=== PATIENT | female | born 1935 | race Two or more races ===

== ENCOUNTER 2017-02-25 05:55 | Day surgery (SDC) | payer OTHER ==
[2017-02-24 11:59] VITALS: BMI 26.1
[~2017-02-25] VITALS: Ht 167.6 cm; Wt 73.7 kg
[2017-02-25] VITALS (16 sets, daily range): BP systolic 117–148; BP diastolic 58–75; PULSE 60–70; RESP 14–23; Ht 167.6 cm; Wt 73.7 kg
[~2017-02-25 05:55] MED LIST: ALEN70TA30 PO; METH10TA5 PO; OMEG1CAP30 PO; PANT40TA4 PO; UBID100C24 PO; [UNRECOGNIZED DRUG - CODE] PO
[2017-02-25] MEDS ORDERED: CEFAZOLIN 2 GM/50 ML (PMX) 50 ML IVPB SCH (06:00)
[2017-02-25] MEDS ORDERED: BUPIVACAINE 0.25% (MPF) 30 ML INJ ONE (07:02)
[2017-02-25] MEDS ORDERED: POLYMYXIN/BACITRACIN 1L IRRIG ONE (07:02)
[2017-02-25] MEDS ORDERED: FENTAnyl 50 MCG/ML VIAL ONE (07:22)
[2017-02-25] MEDS ORDERED: PROPOFOL 20 ML ONE (07:22)
[2017-02-25] MEDS ORDERED: METH10TA5 PO (07:47)
[2017-02-25] MEDS ORDERED: DONE5TAB7 PO (07:47)
[2017-02-25] MEDS ORDERED: PARO-37 PO (07:47)
--- NOTE | 2017-02-25 07:57 | HPN ---
Date/Time of Note Date/Time of Note DATE: 02/25/17 TIME: 07:57 Interval H&P Admission Note Pt. seen H&P reviewed: No system changes BAMBI DU DPM Feb 25, 2017 07:57
[2017-02-25] MEDS ORDERED: CEFAZOLIN 1 GM INJ ONE (08:06)
[2017-02-25] MEDS ORDERED: METOCLOPRAMIDE 10 MG INJ ONE (08:07)
[2017-02-25] MEDS ORDERED: ONDANSETRON 4 MG INJ ONE (08:07)
[2017-02-25] MEDS ORDERED: DEXAMETHASONE 4 MG/ML 1 ML INJ ONE (08:07)
[2017-02-25] MEDS ORDERED: ACETAMINOPHEN 1000MG/100ML IV 100 ML ONE (08:07)
[2017-02-25] MEDS ORDERED: PHENYLephrine (100 MCG/ML) 5ML SYG ONE ×2 (08:10→08:34)
--- NOTE | 2017-02-25 09:56 | OPR ---
Date/Time of Note Date/Time of Note DATE: 02/25/17 TIME: 09:56 Operative Report Procedure Date: Feb 25, 2017 Preoperative Diagnosis Severe hammertoe left second toe Severe hammertoe left third toe Severe hammertoe left fourth toe Severe hammertoe left fifth toe Subluxation left second metatarsophalangeal joint Subluxation left third metatarsophalangeal joint Left foot pain Postoperative Diagnosis Severe hammertoe left second toe Severe hammertoe left third toe Severe hammertoe left fourth toe Severe hammertoe left fifth toe Subluxation left second metatarsophalangeal joint Subluxation left third metatarsophalangeal joint Left foot pain Operation Performed Surgical correction of left second hammertoe deformity Surgical correction of left third hammertoe deformity Surgical correction of left fourth hammertoe deformity Surgical correction left fifth hammertoe deformity Second metatarsal osteotomy left foot Third metatarsal osteotomy left foot Second metatarsophalangeal joint release left foot Third metatarsophalangeal joint release left foot Fourth metatarsal phalangeal joint release left Surgeon: TODD DU M.D. Anesthesia: MAC Estimated Blood Loss: minimal Specimens Bone from left foot toes 2 through 5 Complications: None Pt Condition Post Procedure: stable Disposition: PACU Indications This is a pleasant 81-year-old female patient who has been suffering with severe left foot hammertoe deformities and subluxation of the second and third metatarsophalangeal joints for the past several years, worsened for the past 2 years. Patient reports pain with shoes and with activities. Patient was evaluated and was found to have severe subluxation of second and third metatarsophalangeal joints with severe rigid hammertoes 2 through 5 of the left foot. Patient has failed the following treatments: Activity modification, shoewear modification, NSAIDs, orthotics, injections. Patient seeks surgical management. Recommended procedure: Surgical correction of left second through fifth rigid hammertoes with second and third metatarsal osteotomies and metatarsophalangeal joint release of second, third and fourth metatarsal phalangeal joints of the left foot. Risks and complications of this type of surgery was discussed with patient in great detail. Risks and complications discussed included, but are not limited to, postoperative infection, postoperative pain, hardware failure, malunion, nonunion, delayed union, failure of surgery to correct the problem, need for additional surgical procedures, deep venous thrombosis, limb loss and loss of life. Patient understands the discussion and agrees to the procedure. An informed consent was signed, obtained and placed in the chart. No guarantees or warrantees was given or implied as to the outcome of the procedure either in verbal or written form. Operative\Procedure Findings Severe rigid hammertoe second through fifth left foot with subluxation of second and third metatarsophalangeal joints Procedure Description Procedure in detail: The patient was brought into the operating room and was placed on the operating table in the supine position. General anesthesia was administered to the patient by the anesthesiologist. A pneumatic ankle tourniquet was applied to the left ankle. All bony prominences were padded probably. A timeout was called by the circulating nurse. The correct site of surgery was identified. All instrumentation was checked. All necessary preoperative medications have been administered. The left foot was scrubbed, prepped and draped in the usual aseptic manner. An Esmarch bandage was utilized to exsanguinate the foot and the pneumatic ankle tourniquet was inflated to 250 mmHg pressure. Procedure #1: Attention was directed to the second toe: A 2 cm linear incision was made over the second toe using a #15 blade extending from the distal interphalangeal joint all the way past the metatarsophalangeal joint. Dissection was deepened through the subcutaneous layer with care being taken to identify and protect vital neurovascular structures. Bleeders were cauterized as necessary. The metatarsophalangeal joint was identified and the extensor tendon was transected distally and proximally and a longitudinal incision was made and the tendon was lengthened. Next, the second metatarsal phalangeal joint was incised using a #15 blade. A McGlamry elevator was inserted and the adhesions were released. Next, a power saw was used to cut the neck of the second metatarsal bone at a 45 angle. The head of the second metatarsal bone was then translated proximally. Next, a 2.0 snap off screw was inserted for permanent fixation. The excess sharp edge of bone dorsally was cut using a rongeur. Next, the proximal interphalangeal joint was exposed by transecting the extensor hallucis longus tendon at that location and dissecting the tendon off of the proximal interphalangeal joint exposing the bone. Using a power saw, the head of the proximal phalanx was cut and passed from the field. The base of the middle phalanx was denuded of cartilage. Sterile normal saline was used to irrigate the wound. Next, a 0.062 K wire was inserted for fixation. The K wire was then bent and cut. The hammertoe was reduced completely and the head of the metatarsal bone was removed approximately reducing subluxation of the second metatarsal phalangeal joint. Next, the tendon was reapproximated in the lengthened position using 4-0 Vicryl suture. The subcutaneous layer was then closed using 4-0 Vicryl suture and the skin was closed using 5-0 Monocryl in subcuticular stitch pattern. Procedure #2: Attention was directed to the third toe: The same exact procedure was done on the third toe as on the procedure #1. Procedure #3: Attention was directed to the fourth toe: The same exact procedure was done as an procedure #1 except for metatarsal osteotomy. Procedure #4: Attention was directed to the fifth toe: A 1.5 cm incision was made over the dorsal aspect of the fifth toe using a #15 blade. Bleeders were cauterized as necessary. Dissection was deepened through the subcutaneous layer and the extensor tendon was exposed. Bleeders were cauterized as necessary. Vital neurovascular structures were protected and preserved. The extensor tendon was transected at the level of the proximal interphalangeal joint. A power saw was used to cut the head of the proximal phalanx and the base of the middle phalanx. The wound was flushed with copious pus sterile normal saline. A 0.062 K wire was inserted for fixation. The extensor tendon was then reapproximated using 4-0 Vicryl suture. Subcutaneous layer was closed using 4-0 Vicryl suture and the skin was closed using 5-0 Monocryl in subcuticular stitch pattern. All 4 K wires were then covered. Postoperative injection of 0.5% Marcaine plain was given. Sterile dressing was applied to the left foot. The pneumatic ankle tourniquet was deflated at this time and prompt hyperemic response was noted to digits of the left foot. The patient tolerated the procedure and anesthesia well. She was transferred to the recovery room with vital signs stable and vascular status intact to the left foot. Patient will be discharged home after postoperative monitoring. Postoperative orders have been written. Patient will be followed up in 1 week. BAMBI DU DPM Feb 25, 2017 09:56
[2017-02-25] MEDS ORDERED: ONDANSETRON 4 MG INJ IV PRN (10:00)
[2017-02-25] MEDS ORDERED: DIPHENHYDRAMINE 50 MG INJ IV PRN (10:00)
[2017-02-25] MEDS ORDERED: OXYCODONE/ACETAMINOPHEN (5/325) TAB PO PRN ×2 (10:00)
[2017-02-25] MEDS ORDERED: HYDROCODONE/APAP (10/325) TAB PO PRN (10:00)
[2017-02-25] MEDS ORDERED: hydrALAzine 20 MG INJ IV PRN (10:00)
[2017-02-25] MEDS ORDERED: MEPERIDINE 25 MG INJ IV PRN (10:00)
[2017-02-25] MEDS ORDERED: HYDROmorphONE (0.2 MG/ML) 10ML SYG IV PRN ×3 (10:00)
[2017-02-25] MEDS ORDERED: morphine (1 MG/ML) 10ML SYRINGE IV PRN ×3 (10:00)
[2017-02-25] MEDS ORDERED: EPHEDrine SULFATE 50 MG/5 ML SYG IV PRN (10:00)
[2017-02-25] MEDS ORDERED: LABETALOL HCL 20MG INJ IV PRN (10:00)
--- NOTE | 2017-02-25 17:13 | RADRPT ---
PROCEDURE: XR Left foot. CLINICAL INDICATION: Postop. TECHNIQUE: Three views of the left foot were obtained. COMPARISON: No prior studies are available for comparison. FINDINGS: Wires are present within the phalanges of the lesser digits. Findings are consistent with hammertoe repair. There are small screws within the second and third metatarsal necks and there are old post -traumatic changes present. There is mild arthrosis of the first metatarsal phalangeal joint. The bones are osteopenic. No acute fracture is identified. Soft tissue swelling is and expected findin g. No evidence for hardware migration or fracture. IMPRESSION: 1. Appropriate postoperative appearance. 2. Osteopenia. No acute fractures seen. 3. No evidence for hardware migration or fracture. RPTAT: XX .Chico Chauhan MD, Date Time Electronically viewed and signed by .Chico Chauhan MD, on 02/25/2017 17:13 .T/
== END 2017-02-25 12:15 | disposition home or self-care (01) ==
LOC: SDS 05:55
PROVIDERS: ATTEND Podiatrist Foot & Ankle Surgery
DX: M20.42 Other hammer toe(s) (acquired), left foot (principal); I10 Essential (primary) hypertension
CPT/HCPCS: 28285; 73630; 88304; 88311; C1713; J0131; J0690; J1100; J2370; J2405; J2765; J3010; Z7512; Z7610